=== PATIENT | male | born 1990 | race Two or more races ===

== ENCOUNTER 2018-03-23 12:40 | Emergency (ER) | payer SELFPAY ==
[~2018-03-23] VITALS: Ht 175.3 cm; Wt 79.4 kg
[2018-03-23 12:47] VITALS: Ht 175.3 cm; Wt 79.4 kg
[2018-03-23 13:41] LABS: BASOPHIL % 0.3 % (0-2); PLATELET COUNT 266 x10^3mcL (130-400); RED CELL DISTRIBUTION WIDTH 13.4 % (11.5-14.5)
[2018-03-23 13:58] LABS: CALCIUM 9.4 mg/dL (8.5-10.1); CARBON DIOXIDE 29.9 mmol/L (21-32); CHLORIDE SERUM 105 mmol/L (98-107); GFR1 > 60 mL/min; GLUCOSE SERUM 109 mg/dL (74-106); POTASSIUM SERUM 3.6 mmol/L (3.5-5.1); SODIUM SERUM 142 mmol/L (136-145)
[2018-03-23 14:02] LABS: ALBUMIN 4.7 g/dL (3.4-5.0); ALKALINE PHOSPHATASE 64 U/L (46-116); ALT/SGPT 199 U/L (16-63); AMYLASE 29 U/L (25-115); AST/SGOT 50 U/L (15-37); BILIRUBIN TOTAL 0.6 mg/dL (0.20-1.00); LIPASE 114 IU/L (73-393); TOTAL PROTEIN, SERUM 8.1 g/dL (6.4-8.2)
[2018-03-23 18:38] VITALS: BP 121/77
[2018-03-23 19:03] LABS: UA SPECIFIC GRAVITY 1.025 (1.005-1.035); microscopic required? YES; urine erythrocyte 3+ (NEGATIVE)
== END 2018-03-23 18:39 | disposition home or self-care (01) ==
LOC: ED 12:40
PROVIDERS: Emergency Medicine
DX: N23 Unspecified renal colic (principal); F17.210 Nicotine dependence, cigarettes, uncomplicated
CPT/HCPCS: 99406; J1885; J7030